=== PATIENT | male | born 1980 | race Caucasian/White ===

== ENCOUNTER 2017-09-27 10:46 | Emergency (ER) | payer MEDICAID ==
[2017-09-27] MEDS ORDERED: DEXAMETHASONE 4 MG TAB PO ONE (12:26)
--- NOTE | 2017-09-27 12:31 | EDPHY ---
H & P Smoking Status: Current every day smoker Time Seen by Provider: 09/27/17 12:01 HPI/ROS: CHIEF COMPLAINT: Jaw clinching HISTORY OF PRESENT ILLNESS: 37-year-old male presents to the emergency department complaining of jaw clinching. He has had similar symptoms in the past. He states that he has grinding his teeth frequently which causes the symptoms. He has had this in the past. He has seen a dentist for it. He was given a mouth guard however he did not uses correctly. Patient states that when he does developed this he developed abdominal cramping. No vomiting. No diarrhea. ROS: He denies dysphagia, headache, dental pain. (Kate Bartlett) Past Medical/Surgical History: Orthopedic injuries (Kate Bartlett) Social History: Single (Kate Bartlett) Physical Exam: On examination the patient is unable to open his mouth. Nontender to palpate TMJ bilaterally. No palpable bony tenderness or deformity. His teeth appear to be in good repair. He is missing his left lower 2nd molar which apparently is how he swallowing pills. Lungs are clear to auscultation in all olson with no wheezing, rhonchi or rales. Heart regular rate rhythm without murmur. Neck is supple. No facial swelling. Patient's abdomen is soft and nontender. He is ticklish. (Kate Bartlett) Constitutional: Initial Vital Signs Temperature (C) 35.6 C L 09/27/17 11:03 Heart Rate 83 09/27/17 11:03 Respiratory Rate 16 09/27/17 11:03 Blood Pressure 123/96 H 09/27/17 11:03 O2 Sat (%) 96 09/27/17 11:03 O2 Delivery Mode Room Air Allergies/Adverse Reactions: No Known Allergies Allergy (Verified 09/27/17 11:02) Home Medications: Medication Instructions Recorded BENADRYL 12/30/15 Hydrocortisone 2.5% 1 donna TP BID #454 gm 12/30/15 [Hydrocortisone 2.5% cream (*)] Dexamethasone [Decadron] 8 mg PO DAILY #2 tab 09/27/17 Gabapentin 09/27/17 traMADol [Ultram 50 mg (*)] 50 mg PO Q4 #11 tab 09/27/17 MDM/Departure - MDM Medications Given: Discontinued Medications Dexamethasone (Decadron) 10 mg PO EDNOW ONE Stop: 09/27/17 12:27 Last Admin: 09/27/17 12:31 Dose: 10 mg ED Course/Re-evaluation: 37-year-old male presents to the emergency department with pain in his jaw from clenching and grinding his teeth. I do not think imaging studies are indicated. The patient reports no trauma. He has had similar symptoms in the past. He was given referral to oral surgeon. The patient is requesting narcotic medication. I explained that he would be given alternative to opiates including Decadron. He is already taking his Neurontin. He was also given a prescription for tramadol. (Kate Bartlett) I did not see this patient while he was in the emergency department. However his care was discussed with PA while the patient was in the department. I agree with treatment plan and management (Bradley Rodas) - Depart Disposition: Home, Routine, Self-Care Clinical Impression: Clenching of teeth, Jaw pain Condition: Good Instructions: Temporomandibular Disorder (ED) Additional Instructions: You should follow up with your dentist as discussed. You have also been referred to an oral surgeon. You were given a dose of oral Decadron in the emergency department. You are also given another dose of this medication to be taken tomorrow. You may continue ibuprofen 600 mg every 8 hr as needed for pain. You may also use tramadol as prescribed. Do not take any opiates with this medication. Stand Alone Forms: Narcotic Guidelines Prescriptions: Dexamethasone [Decadron] 8 mg PO DAILY #2 tab traMADol [Ultram 50 mg (*)] 50 mg PO Q4 #11 tab Referrals: Edgard Mckee DDS [Doctor of Dental Surgery] - As per Instructions (Oral surgeon on-call)
[2017-09-27 12:47] VITALS: BP 112/76
== END 2017-09-27 12:47 | disposition home or self-care (01) ==
DX: G47.63 Sleep related bruxism (principal); F17.200 Nicotine dependence, unspecified, uncomplicated